=== PATIENT | male | born 1970 | race Caucasian/White ===

== ENCOUNTER 2020-05-25 22:24 | Emergency (ER) | payer BC ==
[~2020-05-25] VITALS: Ht 170.2 cm; Wt 87.1 kg
--- NOTE | 2020-05-25 22:41 | NUR ---
PATIENT CAME TO ER BED 8 C/O NON-RADIATING LEFT SIDED CHEST PAIN THAT BEGAN 30MINUTES MANAGER CLIENT SUPPORT. PATIENT STATES THAT HE HAS HAD THIS PAIN BEFORE. PATIENT IS AAOX4. AMBULATORY WITH A STEADY GAIT. BREATHING EVENLY AND UNLABORED ON ROOM AIR. CONNECTED TO THE MONITOR.
--- NOTE | 2020-05-25 22:49 | NUR ---
BLOOD COLLECTED SENT TO THE LAB.
[2020-05-25 22:52] LABS: BASOPHILS % (AUTO) 0.6 % (0.0-2.0); EOSINOPHILS % (AUTO) 5.2 % (0.0-6.0); HEMATOCRIT 43 % (39-51); HEMOGLOBIN 14.5 g/dL (13.5-17.5); LYMPHOCYTES # (AUTO) 2.6 /CMM (0.8-4.8); LYMPHOCYTES % (AUTO) 38.8 % (20.0-44.0); MEAN CORPUSCULAR HGB CONC 34 g/dl (31.0-36.0); MEAN CORPUSCULAR VOLUME 94 fL (80-96); MONOCYTES # (AUTO) 0.6 /CMM (0.1-1.30); MONOCYTES % (AUTO) 9.3 % (2.0-12.0); NEUTROPHILS # (AUTO) 3.1 /CMM (1.8-8.9); NEUTROPHILS % (AUTO) 46.1 % (43.0-81.0); PLATELET COUNT (AUTO) 257 /CMM (150-450); RED BLOOD CELL COUNT(AUTO) 4.57 MIL/uL (4.5-6.0); WHITE BLOOD COUNT (AUTO) 6.7 K/uL (4.3-11.0)
[2020-05-25 22:56] LABS: CALCIUM, SERUM 9.5 mg/dL (8.5-10.1); CARBON DIOXIDE 32 mmol/L (21-32); CHLORIDE 103 mmol/L (98-107); GLUCOSE 95 mg/dL (74-106); POTASSIUM 3.6 mmol/L (3.5-5.1); SODIUM SERUM 139 mmol/L (136-145); UREA NITROGEN, BLOOD 23 mg/dL (7-18)
[2020-05-25] MEDS ORDERED: CLONIDINE HCL 0.1 MG TABLET ONE (23:57)
--- NOTE | 2020-05-26 00:01 | NUR ---
Patient discharged to home in stable condition. Written and verbal after care instructions given. Patient verbalizes understanding of instruction.
--- NOTE | 2020-05-26 00:01 | NUR ---
IV removed. Catheter intact and site benign. Pressure and 4x4 applied to site. No bleeding noted.
[2020-05-26] MEDS ORDERED: CLONIDINE HCL 0.1 MG TABLET PO ONE ×2 (00:30)
[2020-05-26 00:33] VITALS: BP 128/77
== END 2020-05-26 00:33 | disposition home or self-care (01) ==
LOC: ER 22:31
DX: R07.89 Other chest pain (principal); R11.0 Nausea; I10 Essential (primary) hypertension; E78.5 Hyperlipidemia, unspecified; Z88.1 Allergy status to other antibiotic agents
CPT/HCPCS: 36415; 71045-TC; 80048-TC; 84484-TC; 85025-TC